=== PATIENT | male | born 1965 | race Caucasian/White ===

== ENCOUNTER 2024-10-18 10:37 | Inpatient (IN) | payer MEDICARE ==
[2024-10-18] MEDS ORDERED: Sodium Chloride 0.9% 10 ML Syringe FLUSH PRN (10:51)
[2024-10-18 11:25] LABS: BASOPHILS ABSOLUTE AUTO 0.03 K/uL (0.02-0.10); BASOPHILS PERCENT AUTO 0.2 % (0.0-0.5); EOSINOPHILS ABSOLUTE AUTO 0.06 K/uL (0.04-0.40); EOSINOPHILS PERCENT AUTO 0.5 % (1.0-5.0); LYMPHOCYTES ABSOLUTE AUTO 1.62 K/uL (1.50-4.00); LYMPHOCYTES PERCENT AUTO 12.4 % (20.0-40.0); MEAN PLATELET VOLUME 10.0 fL (6.0-10.0); MONOCYTES ABSOLUTE AUTO 1.20 K/uL (0.20-0.80); MONOCYTES PERCENT AUTO 9.2 % (3.0-10.0); NEUTROPHILS ABSOLUTE AUTO 10.11 K/uL (2.00-7.50); NEUTROPHILS PERCENT AUTO 77.7 % (45.0-70.0); PLATELET COUNT,PLT 190 K/uL (150-400); RED BLOOD CELL COUNT 3.89 M/uL (4.50-6.50); RED CELL DISTRIBUTION WIDTH 13.5 % (11.0-16.0); WHITE BLOOD CELL COUNT,WBC 13.0 K/uL (4.0-11.0)
[2024-10-18 11:51] LABS: ALANINE AMINOTRANSFERASE,ALT 12.0 U/L (12-78); ASPARTATE AMNIOTRANSFERASE,AST 18.0 U/L (15-37); BILIRUBIN TOTAL 2.0 mg/dL (0.0-1.0); CARBON DIOXIDE,CO2 38.1 mmol/L (21.0-32.0); PROTEIN TOTAL,TP 7.2 g/dL (6.4-8.2)
[2024-10-18 12:00] LABS: A/G RATIO 0.4 (0.8-2.0); BLOOD UREA NITROGEN,BUN 24.0 mg/dL (8-26); CHLORIDE,CL 94.0 mmol/L (98-107); CREATININE 1.87 mg/dL (0.70-1.30); EST CRCL DRUG DOSING (CG) 46.11 mL/min; ESTIMATED GFR 41.0 mL/min (>60); GLUCOSE RANDOM 140.0 mg/dL (74-100); SODIUM,NA 139.0 mmol/L (136-145)
[2024-10-18 12:02] LABS: POTASSIUM,K 2.7 mmol/L (3.5-5.1)
[2024-10-18] MEDS: Magnesium Sulfat/D5W 1GM/100ML 1 GM in Premix Bag 1 BAG IV ONE (12:07)
[2024-10-18] MEDS: NS + KCl 20mEq/L 1,000 ML IV SCH ×2 (12:13→17:01)
[2024-10-18 12:50] LABS: LACTIC ACID 2.2 mmol/L (0.4-2.0)
[2024-10-18 13:05] LABS: ETHANOL BLOOD MEDICAL < 3.0 mg/dL (<3.0)
[2024-10-18] MEDS: Magnesium Sulfat/D5W 1GM/100ML 100 ML ONE (13:17)
[2024-10-18] MEDS: Magnesium Sulfate 2 GM/50 mL 2 GM in Premix Bag 1 BAG IV ONE ×2 (13:19→17:02)
[2024-10-18 18:52] LABS: BLOOD UREA NITROGEN,BUN 22.0 mg/dL (8-26); CARBON DIOXIDE,CO2 31.8 mmol/L (21.0-32.0); CHLORIDE,CL 93.0 mmol/L (98-107); CREATININE 1.8 mg/dL (0.70-1.30); EST CRCL DRUG DOSING (CG) 47.9 mL/min; ESTIMATED GFR 43.0 mL/min (>60); GLUCOSE RANDOM 164.0 mg/dL (74-100); PHOSPHORUS 2.8 mg/dL (2.5-4.9); SODIUM,NA 133.0 mmol/L (136-145)
[2024-10-18 18:53] LABS: POTASSIUM,K 2.8 mmol/L (3.5-5.1)
[2024-10-18] MEDS: Potassium Chloride 20 MEQ Tab.ER PO SCH (19:38)
[2024-10-18 21:18] LABS: APPEARANCE,URINE SLIGHTLY CLOUDY (CLEAR); GLUCOSE,URINE NEGATIVE (NEGATIVE); OCCULT BLOOD,URINE NEGATIVE (NEGATIVE)
[2024-10-18 21:20] LABS: AMPHETAMINES SCREEN, URINE NEGATIVE (NEGATIVE); METHADONE SCREEN, URINE NEGATIVE (NEGATIVE); METHAMPHETAMINES SCREEN, URINE NEGATIVE (NEGATIVE); OXYCODONE SCREEN,URINE NEGATIVE (NEGATIVE); THC SCREEN,URINE 50 NG/ML NEGATIVE (NEGATIVE)
[2024-10-18 21:22] LABS: EPITHELIAL CELLS,URINE OCCASIONAL /HPF
[2024-10-19 09:29] LABS: BLOOD UREA NITROGEN,BUN 21.0 mg/dL (8-26); CARBON DIOXIDE,CO2 31.3 mmol/L (21.0-32.0); CHLORIDE,CL 98.0 mmol/L (98-107); CREATININE 1.55 mg/dL (0.70-1.30); EST CRCL DRUG DOSING (CG) 55.63 mL/min; ESTIMATED GFR 51.0 mL/min (>60); GLUCOSE RANDOM 99.0 mg/dL (74-100); POTASSIUM,K 3.2 mmol/L (3.5-5.1); SODIUM,NA 135.0 mmol/L (136-145)
[2024-10-19 09:55] LABS: MEAN PLATELET VOLUME 10.7 fL (6.0-10.0); PLATELET COUNT,PLT 160.0 K/uL (150-400); RED BLOOD CELL COUNT 2.66 M/uL (4.50-6.50); RED CELL DISTRIBUTION WIDTH 12.7 % (11.0-16.0); WHITE BLOOD CELL COUNT,WBC 7.4 K/uL (4.0-11.0)
[2024-10-19] MEDS: D5 1/2 NS w/ 40 mEq/L KCl 1,000 ML IV SCH (12:43)
[2024-10-20 09:38] LABS: MEAN PLATELET VOLUME 9.8 fL (6.0-10.0); PLATELET COUNT,PLT 173.0 K/uL (150-400); RED BLOOD CELL COUNT 2.76 M/uL (4.50-6.50); RED CELL DISTRIBUTION WIDTH 12.5 % (11.0-16.0); WHITE BLOOD CELL COUNT,WBC 5.9 K/uL (4.0-11.0)
[2024-10-20 09:59] LABS: BLOOD UREA NITROGEN,BUN 17.0 mg/dL (8-26); CARBON DIOXIDE,CO2 30.2 mmol/L (21.0-32.0); CHLORIDE,CL 98.0 mmol/L (98-107); CREATINE KINASE,CK 17.0 U/L (21-232); CREATININE 1.47 mg/dL (0.70-1.30); EST CRCL DRUG DOSING (CG) 58.65 mL/min; ESTIMATED GFR 54.0 mL/min (>60); GLUCOSE RANDOM 87.0 mg/dL (74-100); POTASSIUM,K 3.9 mmol/L (3.5-5.1); SODIUM,NA 134.0 mmol/L (136-145)
[2024-10-20 14:11] LABS: ALANINE AMINOTRANSFERASE,ALT 13.0 U/L (12-78); ASPARTATE AMNIOTRANSFERASE,AST 27.0 U/L (15-37); BILIRUBIN DIRECT 0.3 mg/dL (0.0-0.3); BILIRUBIN INDIRECT 0.3 mg/dL (<= 0.7); BILIRUBIN TOTAL 0.6 mg/dL (0.0-1.0); PROTEIN TOTAL,TP 5.8 g/dL (6.4-8.2)
[2024-10-20 14:19] LABS: A/G RATIO 0.5 (0.8-2.0)
[2024-10-20] MEDS: Nicotine Polacrilex 2 MG Loz CHEW PRN (22:09)
[2024-10-21] MEDS: Potassium Chloride 20 MEQ Tab.ER PO SCH (08:25)
[2024-10-21 09:28] LABS: POTASSIUM,K 3.8 mmol/L (3.5-5.1)
[2024-10-21] MEDS: Lactobacillus Acidophilus/Lactobacillus Sporogenes (Probiotic) Tab PO SCH (10:20)
[2024-10-22 11:14] LABS: BLOOD UREA NITROGEN,BUN 11.0 mg/dL (8-26); CARBON DIOXIDE,CO2 24.2 mmol/L (21.0-32.0); CHLORIDE,CL 100.0 mmol/L (98-107); CREATININE 1.44 mg/dL (0.70-1.30); EST CRCL DRUG DOSING (CG) 59.88 mL/min; ESTIMATED GFR 56.0 mL/min (>60); GLUCOSE RANDOM 112.0 mg/dL (74-100); POTASSIUM,K 4.5 mmol/L (3.5-5.1); SODIUM,NA 132.0 mmol/L (136-145)
[2024-10-24 14:37] LABS: FOLATE,SERUM 6.4 ng/mL (>=5.9)
[2024-10-24 20:13] LABS: IRON BINDING CAPACITY TOTAL 124 ug/dL (240-450); IRON,SERUM OR PLASMA 56 ug/dL (45-182); TRANSFERRIN SATURATION 45 %sat (20-50)
[2024-10-24 23:46] LABS: ADENOVIRUS 40/41 PCR Not Detected; ASTROVIRUS PCR Not Detected; CRYPTOSPORIDIUM PCR Not Detected; CYCLOSPORA CAYETANENSIS PCR Not Detected; ENTAMOEBA HISTOLYTICA PCR Not Detected; ENTEROAGGREGATIVE E. COLI PCR Not Detected; ENTEROPATHOGENIC E. COLI PCR Not Detected; ENTEROTOXIGENIC E. COLI PCR Not Detected; GIARDIA LAMBLIA PCR Not Detected; NOROVIRUS GI/GII PCR Not Detected; PLESIOMONAS SHIGELLOIDES PCR Not Detected; ROTAVIRUS A PCR Not Detected; SALMONELLA PCR Not Detected; SAPOVIRUS PCR Not Detected; SHIG/ENTEROINVASIVE E COLI PCR Not Detected; SHIGA TOXIN-PRODUC E. COLI PCR Not Detected; VIBRIO CHOLERAE PCR Not Detected; VIBRIO PCR Not Detected; YERSINIA ENTEROCOLITICA PCR Not Detected
== END 2024-10-23 12:05 | disposition home or self-care (01) | DRG 641 ==
LOC: LB.ED 10:37 → LB.MS 11:00 → UNDOADMIN 15:30 → LB.MS 10-20 09:29
PROVIDERS: ADMIT Surgery; ATTEND Surgery
DX: E86.0 Dehydration (principal); N17.9 Acute kidney failure, unspecified; N39.0 Urinary tract infection, site not specified; E87.1 Hypo-osmolality and hyponatremia; E83.42 Hypomagnesemia; R53.81 Other malaise; Z66 Do not resuscitate; G62.9 Polyneuropathy, unspecified; M10.371 Gout due to renal impairment, right ankle and foot; I48.91 Unspecified atrial fibrillation; N18.9 Chronic kidney disease, unspecified; E87.6 Hypokalemia; E88.09 Other disorders of plasma-protein metabolism, not elsewhere classified; R32 Unspecified urinary incontinence; R15.9 Full incontinence of feces; I87.2 Venous insufficiency (chronic) (peripheral); F17.220 Nicotine dependence, chewing tobacco, uncomplicated
CPT/HCPCS: 36415; 70450; 73600-RT; 73630-RT; 80048; 80053; 80076; 80307; 81001; 82140; 82272; 82550; 82607; 82746; 83540; 83550; 83605; 83735; 84100; 84132; 84550; 85025; 85027; 86140; 87493; 87507; 93005; 93010; 96361; 96365; 96366; 96367; 96368; 97162-GP; 97530-GP; 99222; 99232; 99238; 99285-25; A0425; A0429; A9270-GY; J0696; J1650; J3475; J3480; J7030

== ENCOUNTER 2024-11-10 12:30 | Emergency (ER) | payer MEDICARE ==
[2024-11-10 13:49] LABS: A/G RATIO 0.4 (0.8-2.0); ALANINE AMINOTRANSFERASE,ALT 9.0 U/L (12-78); ASPARTATE AMNIOTRANSFERASE,AST 30.0 U/L (15-37); BILIRUBIN TOTAL 0.6 mg/dL (0.0-1.0); BLOOD UREA NITROGEN,BUN 6.0 mg/dL (8-26); CARBON DIOXIDE,CO2 31.1 mmol/L (21.0-32.0); CHLORIDE,CL 103.0 mmol/L (98-107); CREATININE 1.21 mg/dL (0.70-1.30); EST CRCL DRUG DOSING (CG) 71.26 mL/min; ESTIMATED GFR 69.0 mL/min (>60); GLUCOSE RANDOM 107.0 mg/dL (74-100); POTASSIUM,K 3.1 mmol/L (3.5-5.1); PROTEIN TOTAL,TP 5.9 g/dL (6.4-8.2); SODIUM,NA 138.0 mmol/L (136-145)
[2024-11-10] MEDS: Potassium Chloride 20 MEQ Tab.ER PO ONE ×2 (15:23→16:04)
== END 2024-11-10 17:00 | disposition home or self-care (01) ==
LOC: LB.ED 12:30
DX: G62.9 Polyneuropathy, unspecified (principal); E87.6 Hypokalemia; F17.210 Nicotine dependence, cigarettes, uncomplicated; Z79.899 Other long term (current) drug therapy
CPT/HCPCS: 36415; 80053; 83036; 85018; 99283; A9270; J1650